=== PATIENT | male | born 1945 | race Caucasian/White ===

== ENCOUNTER 2017-03-26 06:26 | Day surgery (SDC) | payer OTHER, MEDICARE ==
[2017-03-19 17:11] VITALS: BMI 22.6
[2017-03-26] MEDS ORDERED: PROPOFOL 20 ML ONE ×2 (07:09→08:11)
[2017-03-26] MEDS ORDERED: MIDAZOLAM HCL 2 MG/2 ML SINGLE DOSE VIAL ONE (07:09)
[2017-03-26] MEDS ORDERED: TETRACAINE 0.5% OPHTH SOLN 2 ML BOTTLE ONE (07:18)
[2017-03-26] MEDS ORDERED: BACITRACIN 3.5 GM OPTHALMIC OINT TUBE ONE (07:18)
[2017-03-26] MEDS ORDERED: THROMBIN (BOVINE) 5,000 UNIT VIAL TP ONE (07:18)
[2017-03-26] MEDS ORDERED: BUPIVACAINE HCL/PF 0.5% (5MG/ML) 10 ML VIAL ONE (07:19)
[2017-03-26] MEDS ORDERED: LIDOCAINE 1%/EPI 1:100000 (20 ML MULTI DOSE VIAL) ONE (07:19)
[2017-03-26] MEDS ORDERED: POVIDONE-IODINE 5% OPHTHALMIC PREP 30 ML SOLUTION ONE (07:28)
[2017-03-26] MEDS ORDERED: ceFAZolin SODIUM 1 GM VIAL ONE (07:56)
[2017-03-26] MEDS ORDERED: BACITRACIN/POLYMYXIN OPH OINT 3.5 GM TUBE OS ONE (08:22)
[2017-03-26] MEDS ORDERED: BACITRACIN 3.5 GM OPTHALMIC OINT TUBE OS ONE (08:23)
[2017-03-26] MEDS ORDERED: DEXAMETHASONE SOD PHOSPHATE 4 MG/1 ML VIAL ONE (08:24)
--- NOTE | 2017-03-26 09:19 | OP ---
DATE OF OPERATION: 03/26/2017 PREOPERATIVE DIAGNOSIS: Involutional entropion, left, and bilateral enophthalmos. POSTOPERATIVE DIAGNOSIS: Involutional entropion, left, and bilateral enophthalmos. PROCEDURE: 1. Lateral tarsal strip, left lower lid. 2. Transconjunctival plication of retractors, left lower lid. 3. Excision of orbicularis flap, left lower lid, all in repair of entropion. SURGEON: Marisabel Dillard MD ANESTHESIA: Local with sedation. COMPLICATIONS: None. ESTIMATED BLOOD LOSS: 1-2 mL. OPERATIVE REPORT: Patient brought to the operating room, placed on the operating room table. Vital signs monitored by Anesthesia. Tetracaine was placed in both eyes. Timeout was performed. Lateral canthal line was marked at left lateral canthus. Following this and following intravenous sedation, a 50/50 mixture of 2% Xylocaine, 1:100,000 epinephrine and 0.5% Marcaine was injected at the lateral canthus down to periosteum and subconjunctivally across the inferior conjunctiva for a total of 2-3 mL. Massage was applied for hemostasis. The patient was prepped and draped in the usual sterile fashion exposing both eyes. The right eye was closed. Following this, the following procedure was performed. The lateral canthal incision was made with a 15-blade through the lateral canthal area down toward the periosteum. The inferior ravi of the lateral canthal tendon was from orbital rim with sharp dissection and with Rice needle, releasing the tarsus and the tendon completely from the orbital rim attachment. Hemostasis was achieved with Rice needle, and antibiotic irrigation was used throughout the case. Traction sutures of 4-0 silk were passed through the central lid margin, and the lid was everted over a Desmarres retractor. Before this, the lid was overlapped at the orbital rim, marked with sterile marking pen and divided into an anterior and posterior lamella. The anterior lamella was excised. The posterior lamella was denuded of epithelium posteriorly and superiorly, and a lateral tarsal strip was created. Double-arm 5-0 Prolene was passed through the tarsal strip and then through the periosteum at the internal surface of the orbital rim. It had to be somewhat posteriorly placed due to this patient's marked enophthalmos, and therefore this would reapproximate the tarsal strip to the orbital rim at its shortened position. It was reinforced with 6-0 Vicryl lasso sutures, and this suture was not tied at this time. The lid was everted over a Desmarres retractor with a traction suture, and a transconjunctival incision was made through the conjunctiva at the base of the tarsus. The conjunctiva retractors were then dissected off of the posterior orbicularis surface and allowed to retract. The pretarsal orbicularis was from the inferior half of the tarsus with a Rice needle. Partial-thickness orbicularis was excised at the inferior tarsus to create a fibrous adhesion to prevent preseptal override, and then the retractors were reattached to the anterior and inferior tarsus with three 6-0 Vicryl buried sutures plicating and reattaching the retractors and at the same time closing the conjunctiva. Antibiotic irrigation was used throughout the case. The sutures were buried. A 5-0 chromic was then used to repair the canthus to the haywood line of the upper and lower lid in a buried fashion where the knot was tied in the lateral canthus, recreating the lateral canthus. The Prolene was then tied, reattaching the tarsal strip with the appropriate tension to the orbital rim. The excess tarsal strip was overlapped and secured with a 5-0 chromic for extra reinforcement. The subcuticular tissues were closed with a single 5-0 chromic subcuticular suture, and the skin was closed with interrupted 6-0 plain with plastic technique. Bacitracin ointment was placed in the eye and on the lateral canthus, and the patient was taken to recovery room in stable condition. MARISABEL DILLARD M.D. [id number]
[2017-03-26] MEDS ORDERED: ACETAMINOPHEN 500 MG TABLET (FP) PO PRN (10:05)
[2017-03-26] MEDS ORDERED: oxyCODONE HCL 5 MG TABLET PO PRN (10:07)
[2017-03-26] MEDS ORDERED: ONDANSETRON 4 MG/2 ML VIAL IVPUSH PRN (10:07)
[2017-03-26] MEDS ORDERED: LACTATED RINGERS SOLUTION 1,000 ML IV SCH (10:15)
[2017-03-26 10:55] VITALS: BP 122/59; PULSE 57; TEMP 98
== END 2017-03-26 11:05 | disposition home or self-care (01) ==
LOC: FASU 06:26
PROVIDERS: ATTEND Ophthalmology
PROC: 08URX7Z Supplement Left Lower Eyelid with Autologous Tissue Substitute, External Approach (ICD-10-PCS; 2017-03-26)
PROC: 08BR0ZZ Excision of Left Lower Eyelid, Open Approach (ICD-10-PCS; principal; 2017-03-26 08:01)
DX: H02.005 Unspecified entropion of left lower eyelid (principal); H05.403 Unspecified enophthalmos, bilateral
CPT/HCPCS: 94760